=== PATIENT | male | born 1955 | race Caucasian/White ===

== ENCOUNTER 2021-08-26 07:11 | Day surgery (SDC) | payer MEDICARE, OTHER ==
[~2021-08-26 07:11] MED LIST: Lactated Ringers 1,000 ML IV SCH
[2021-08-26] MEDS ORDERED: Lidocaine 1% 5 ML VIAL ONE (07:43)
[2021-08-26] MEDS ORDERED: Propofol 200 MG/20 ML SDV ONE ×2 (07:43→09:51)
[2021-08-26] MEDS ORDERED: fentaNYL 100 MCG/2 ML SDV ONE (07:43)
== END 2021-08-26 10:35 | disposition home or self-care (01) ==
LOC: MW.SDS 07:11
PROVIDERS: ATTEND Surgery
DX: Z09 Encounter for follow-up examination after completed treatment for conditions other than malignant neoplasm (principal); D50.9 Iron deficiency anemia, unspecified; I25.10 Atherosclerotic heart disease of native coronary artery without angina pectoris; K21.9 Gastro-esophageal reflux disease without esophagitis; E78.00 Pure hypercholesterolemia, unspecified; I10 Essential (primary) hypertension; E11.51 Type 2 diabetes mellitus with diabetic peripheral angiopathy without gangrene; E55.9 Vitamin D deficiency, unspecified; G47.30 Sleep apnea, unspecified; Z95.5 Presence of coronary angioplasty implant and graft; Z79.82 Long term (current) use of aspirin; Z79.899 Other long term (current) drug therapy; Z98.890 Other specified postprocedural states; Z95.1 Presence of aortocoronary bypass graft; Z90.89 Acquired absence of other organs; Z90.49 Acquired absence of other specified parts of digestive tract; Z87.891 Personal history of nicotine dependence
CPT/HCPCS: 43235; 45378; 82947; J2704; J3010; J7120

== ENCOUNTER 2022-01-06 10:36 | Day surgery (SDC) | payer MEDICARE, OTHER ==
[2022-01-06] MEDS ORDERED: Propofol 200 MG/20 ML SDV ONE (11:21)
[2022-01-06] MEDS ORDERED: fentaNYL 100 MCG/2 ML SDV ONE (11:21)
[2022-01-06] MEDS ORDERED: Midazolam 1 MG/ML 2 ML SDV ONE (11:21)
[2022-01-06] MEDS ORDERED: Ketamine 500 mg/10 ML MDV ONE (11:22)
[2022-01-06] MEDS ORDERED: Phenylephrine HCl In 0.9% NaCl 1 MG/10 ML Vial ONE (12:26)
== END 2022-01-06 13:20 | disposition home or self-care (01) ==
LOC: MW.SDS 10:36
PROVIDERS: ATTEND Surgery
DX: D50.9 Iron deficiency anemia, unspecified (principal); R19.5 Other fecal abnormalities; K64.8 Other hemorrhoids; I10 Essential (primary) hypertension; E11.69 Type 2 diabetes mellitus with other specified complication; I25.2 Old myocardial infarction; E78.2 Mixed hyperlipidemia; I25.10 Atherosclerotic heart disease of native coronary artery without angina pectoris; N40.0 Benign prostatic hyperplasia without lower urinary tract symptoms; M19.90 Unspecified osteoarthritis, unspecified site; J30.9 Allergic rhinitis, unspecified; K21.9 Gastro-esophageal reflux disease without esophagitis; G43.909 Migraine, unspecified, not intractable, without status migrainosus; G47.33 Obstructive sleep apnea (adult) (pediatric); D51.9 Vitamin B12 deficiency anemia, unspecified; E55.9 Vitamin D deficiency, unspecified; Z79.82 Long term (current) use of aspirin; Z79.02 Long term (current) use of antithrombotics/antiplatelets; Z79.899 Other long term (current) drug therapy; Z87.891 Personal history of nicotine dependence; Z98.890 Other specified postprocedural states; Z95.1 Presence of aortocoronary bypass graft; Z95.5 Presence of coronary angioplasty implant and graft
CPT/HCPCS: 00813; 82947; J2250; J2704; J3010; J3490; J7120

== ENCOUNTER 2023-09-09 06:29 | Day surgery (SDC) | payer MEDICARE, OTHER ==
[~2023-09-09 06:29] MED LIST changes: +Acetaminophen 1,000 MG in Premix Bag 1 BAG IV SCH; -Lactated Ringers 1,000 ML IV SCH; +ceFAZolin 2 GM in Sodium Chloride 0.9% 50 ML IV ONE
[2023-09-09] MEDS ORDERED: propofoL 50 ML ONE (06:53)
[2023-09-09] MEDS ORDERED: Morphine 2 MG/ML SYRINGE IVPUSH PRN (06:54)
[2023-09-09] MEDS ORDERED: HYDROmorphone 1 MG/ML Syringe IVPUSH PRN (06:54)
[2023-09-09] MEDS ORDERED: Naloxone 0.4 MG/ML SDV IVPUSH PRN (06:54)
[2023-09-09] MEDS ORDERED: fentaNYL 50 MCG/ML SDV IVPUSH PRN (06:54)
[2023-09-09] MEDS ORDERED: Metoclopramide 10 MG/2 ML SDV IVPUSH PRN (06:54)
[2023-09-09] MEDS ORDERED: droPERidol 5 MG/2 ML SDV IVPUSH PRN (06:54)
[2023-09-09] MEDS ORDERED: Ondansetron 4 MG/2 ML SDV IVPUSH PRN (06:54)
[2023-09-09] MEDS ORDERED: Albuterol 0.083% 2.5 MG/3 ML Neb Soln NEB PRN (06:54)
[2023-09-09] MEDS ORDERED: Lidocaine 2% 5 ML SDV ONE (06:58)
[2023-09-09] MEDS ORDERED: ceFAZolin 2 GM Vial ONE (06:59)
[2023-09-09] MEDS ORDERED: Water For Injection, Sterile 20 ML ONE (07:03)
[2023-09-09] MEDS ORDERED: Lidocaine 1% 20 ML MDV ONE (07:10)
[2023-09-09] MEDS ORDERED: Bupivacaine 0.5% 30 ML SDV ONE (07:11)
[2023-09-09] MEDS ORDERED: Heparin Sodium 100 Units/ML 3 ML Syringe ONE (07:12)
[2023-09-09] MEDS: Lactated Ringers 1,000 ML IV SCH (07:22)
[2023-09-09] MEDS ORDERED: Metoclopramide 10 MG/2 ML SDV ONE (07:29)
[2023-09-09 08:21] LABS: INR 1.04 (0.86-1.11)
[2023-09-09] MEDS ORDERED: Propofol 200 MG/20 ML SDV ONE (09:12)
[2023-09-09] MEDS: Ketorolac 30 MG/ML SDV IVPUSH ONE (10:19)
== END 2023-09-09 11:10 | disposition home or self-care (01) ==
LOC: MW.SDS 06:29
PROVIDERS: ATTEND Surgery
DX: C78.7 Secondary malignant neoplasm of liver and intrahepatic bile duct (principal); C80.1 Malignant (primary) neoplasm, unspecified; I25.10 Atherosclerotic heart disease of native coronary artery without angina pectoris; K21.9 Gastro-esophageal reflux disease without esophagitis; I10 Essential (primary) hypertension; E11.69 Type 2 diabetes mellitus with other specified complication; E78.2 Mixed hyperlipidemia; D64.9 Anemia, unspecified; G47.30 Sleep apnea, unspecified; Z95.9 Presence of cardiac and vascular implant and graft, unspecified; Z79.82 Long term (current) use of aspirin; Z79.899 Other long term (current) drug therapy; Z98.84 Bariatric surgery status; Z98.890 Other specified postprocedural states; Z87.891 Personal history of nicotine dependence
CPT/HCPCS: 36415; 36561; 71045; 76000; 85610; J0665; J0690; J1642; J1885; J2704; J2765; J7120; J3490

== ENCOUNTER 2023-10-24 15:47 | Emergency (ER) | payer MEDICARE, OTHER | END 2023-10-24 17:52 | disposition home or self-care (01) | LOC: MW.ED 15:47 | DX: R60.0 Localized edema (principal); I10 Essential (primary) hypertension; E78.00 Pure hypercholesterolemia, unspecified; I25.10 Atherosclerotic heart disease of native coronary artery without angina pectoris; I25.2 Old myocardial infarction; K21.9 Gastro-esophageal reflux disease without esophagitis; E11.9 Type 2 diabetes mellitus without complications; Z95.1 Presence of aortocoronary bypass graft; Z95.5 Presence of coronary angioplasty implant and graft; Z90.49 Acquired absence of other specified parts of digestive tract; Z79.82 Long term (current) use of aspirin; Z79.899 Other long term (current) drug therapy | CPT/HCPCS: 71045; 71045-26; 93970; 93970-26; 99282; 99284 ==

== ENCOUNTER 2023-11-15 09:42 | Emergency (ER) | payer MEDICARE, OTHER ==
[2023-11-15 13:41] LABS: BASOPHILS ABSOLUTE AUTO 0.01 K/uL (0.00-0.20); BASOPHILS PERCENT AUTO 0.1 % (0.0-1.0); EOSINOPHILS ABSOLUTE AUTO 0.01 K/uL (0.00-0.45); EOSINOPHILS PERCENT AUTO 0.1 % (0.0-6.0); HEMATOCRIT 34.4 % (42.0-52.0); HEMOGLOBIN 11.9 g/dL (14.0-18.0); IMMATURE GRAN ABSOLUTE AUTO 0.11 K/uL (0.00-0.05); IMMATURE GRAN PERCENT AUTO 1.3 % (0.0-0.4); LYMPHOCYTES ABSOLUTE AUTO 0.26 K/uL (1.00-4.80); MEAN CORPUSCULAR HEMOGLOBIN 30.6 pg (28.0-32.0); MEAN CORPUSCULAR HGB CONC 34.6 g/dL (32.0-36.0); MEAN CORPUSCULAR VOLUME 88.4 fL (83.0-99.0); MEAN PLATELET VOLUME 8.3 fL (9.4-12.4); MONOCYTES ABSOLUTE AUTO 0.46 K/uL (0.00-0.80); MONOCYTES PERCENT AUTO 5.2 % (0.0-8.0); NEUTROPHILS ABSOLUTE AUTO 7.94 K/uL (1.80-7.70); NEUTROPHILS PERCENT AUTO 90.3 % (41.0-71.0); PLATELET COUNT,PLT 115 K/uL (150-400); RED BLOOD CELL COUNT 3.89 M/uL (4.52-5.90); WHITE BLOOD CELL COUNT,WBC 8.79 K/uL (3.9-11.3)
[2023-11-15 13:50] LABS: INR 1.11 (0.86-1.11); PTT,PARTIAL THROMBOPLSTIN TIME 32.8 SEC (23.9-30.7)
[2023-11-15 14:09] LABS: A/G RATIO 0.8 (0.9-1.6); ALBUMIN 2.2 g/dL (3.4-5.0); BILIRUBIN TOTAL 0.5 mg/dL (0.2-1.0); CALCIUM 8.1 mg/dL (8.5-10.1); CARBON DIOXIDE,CO2 23.6 mmol/L (21.0-32.0); CREATININE 0.8 mg/dL (0.8-1.3); EST CRCL DRUG DOSING (CG) 91.51 mL/min; MAGNESIUM 1.8 mg/dL (1.8-2.4); PHOSPHORUS 3.5 mg/dL (2.6-4.7); POTASSIUM,K 4.2 mmol/L (3.5-5.1); PROTEIN TOTAL,TP 5.1 g/dL (6.4-8.2); TSH ULTRASENSITIVE 3.86 uIU/mL (0.36-3.74)
[2023-11-15 14:31] LABS: T4 FREE 0.93 ng/dL (0.76-1.46)
[2023-11-15] MEDS: Sodium Chloride 0.9% 500 ML IV STA (14:40)
[2023-11-15] MEDS: Iopamidol 755 MG/ML 500 ML Multipack Bottle IVPUSH STA (16:14)
[2023-11-15 16:59] LABS: APPEARANCE,URINE CLEAR; BILIRUBIN,URINE NEGATIVE (NEGATIVE); COLOR,URINE YELLOW; GLUCOSE,URINE NEGATIVE (NEGATIVE); KETONES,URINE NEGATIVE (NEGATIVE); LEUKOCYTE ESTERASE,URINE NEGATIVE (NEGATIVE); NITRITE,URINE NEGATIVE (NEGATIVE); OCCULT BLOOD,URINE NEGATIVE (NEGATIVE); PROTEIN,URINE NEGATIVE (NEGATIVE); UROBILINOGEN,URINE 0.2 EU/dL (<2.0)
== END 2023-11-15 19:19 ==
LOC: MW.ED 09:42
DX: D69.6 Thrombocytopenia, unspecified (principal); E87.1 Hypo-osmolality and hyponatremia; R60.1 Generalized edema; C22.9 Malignant neoplasm of liver, not specified as primary or secondary; I10 Essential (primary) hypertension; E78.00 Pure hypercholesterolemia, unspecified; I25.10 Atherosclerotic heart disease of native coronary artery without angina pectoris; K21.9 Gastro-esophageal reflux disease without esophagitis; E11.9 Type 2 diabetes mellitus without complications; Z79.899 Other long term (current) drug therapy; Z79.82 Long term (current) use of aspirin
CPT/HCPCS: 36415; 71045; 71260; 74177; 80053; 81003; 83690; 83735; 83880; 84100; 84439; 84443; 84484; 85025; 85610; 85730; 93005; 93970; 96360; 99285; J7040; Q9967; 99283